=== PATIENT | male | born 1995 | race Caucasian/White ===

== ENCOUNTER 2018-05-01 01:43 | Emergency (ER) | payer SELFPAY ==
[~2018-05-01] VITALS: Ht 190.5 cm; Wt 80.0 kg
[2018-05-01] MEDS ORDERED: ONDANSETRON ODT 4 MG PO ONE (02:00)
[2018-05-01] MEDS ORDERED: ONDANSETRON ODT 4 MG ONE (02:02)
[2018-05-01 06:35] VITALS: BP 130/62
== END 2018-05-01 07:49 | disposition home or self-care (01) ==
LOC: ED 06:00
DX: F10.120 Alcohol abuse with intoxication, uncomplicated (principal); F19.10 Other psychoactive substance abuse, uncomplicated
CPT/HCPCS: 82962; 99283